=== PATIENT | female | born 1960 | race Hispanic/Latino ===

== ENCOUNTER 2022-10-15 19:34 | Observation (INO) | payer OTHER ==
[2022-10-15] MEDS ORDERED: NA CHLORIDE 0.9% 500 ML ONE ×2 (20:06→21:53)
[2022-10-15 20:11] LABS: Absolute Lymphocytes (CBC) 0.6 K/uL (0.7-4.9); Hematocrit 37.4 % (36.0-45.0); Lymphocytes % 8.4 % (15.3-44.8); MCV 90.6 fL (80-100); MPV 7.7 fL (7.6-11.3); RBC Red Blood Cell Count 4.13 M/uL (3.86-4.86)
[2022-10-15 20:12] LABS: Protime INR 1.19
[2022-10-15] MEDS ORDERED: ONDANSETRON 4 MG/2 ML VIAL ONE (20:22)
[2022-10-15] MEDS ORDERED: FAMOTIDINE 20 MG/2 ML VIAL IV ONE (20:22)
[2022-10-15 20:35] LABS: ALT/SGPT 22 U/L (13-56); Albumin 3.5 g/dL (3.4-5.0); Alkaline Phosphatase 65 U/L (45-117); BUN Blood Urea Nitrogen 9 mg/dL (7-18); Bicarbonate 28 mmol/L (21-32); Bilirubin Total 0.3 mg/dL (0.2-1.0); Glomerular Filtration Rate 83 ml/min (=/>90); Glucose Level 225 mg/dL (74-106); NT PRO-BNP 31 pg/mL (<125); Protein, Total 7.6 g/dL (6.4-8.2); Sodium Level 137 mmol/L (136-145); Troponin High Sensitivity 23.8 pg/mL (<58.9)
[2022-10-15 20:36] LABS: AST/SGOT 22 U/L (15-37); Bilirubin Direct < 0.1 mg/dL (0-0.2); Magnesium 1.8 mg/dL (1.6-2.4); Potassium 4.1 mmol/L (3.5-5.1)
--- NOTE | 2022-10-15 20:44 | RAD REPORT ---
EXAM DESCRIPTION: RAD - Chest Single View - 10/15/2022 8:38 pm CLINICAL HISTORY: COUGH Chest pain. COMPARISON: Chest Single View dated 09/06/2017 FINDINGS: Portable technique limits examination quality. The lungs are grossly clear. The heart is normal in size. No displaced fractures. IMPRESSION: No acute intrathoracic process suspected.
[2022-10-15 20:55] LABS: SARS-COV-2 RT PCR NEGATIVE (NEGATIVE)
[2022-10-15] MEDS ORDERED: MECLIZINE HCL 12.5 MG TAB ONE (20:55)
[2022-10-15 21:06] LABS: Urine Bacteria None Seen /HPF (<20); Urine Mucus Slight /HPF (None Seen)
--- NOTE | 2022-10-15 21:11 | RAD REPORT ---
EXAM DESCRIPTION: CT - Head Brain Wo Cont - 10/15/2022 9:03 pm CLINICAL HISTORY: headache, dizziness Headache, drowsiness COMPARISON: <Comparisons> TECHNIQUE: All CT scans are performed using dose optimization technique as appropriate and may inclu de automated exposure control or mA/KV adjustment according to patient size. FINDINGS: No intracranial hemorrhage, hydrocephalus or extra-axial fluid collection.Mild generalized brain atrophy.No areas of brain edema or evidence of midline shift. Mild mucoperiosteal thickening of both maxillary antra and ethmoid air cells. The calvarium is intact . IMPRESSION: No acute intracranial abnormality. Mild sinus thickening.
--- NOTE | 2022-10-15 21:12 | RAD REPORT ---
EXAM DESCRIPTION: CTAbdomen Pelvis W Contrast - 10/15/2022 9:04 pm CLINICAL HISTORY: Abdominal pain. epigastric pain COMPARISON: No comparisonsNo comparisons TECHNIQUE: Biphasic CT imaging of the abdomen and pelvis was performed with 100 ml non-ionic IV cont rast. All CT scans are performed using dose optimization technique as appropriate and may include automated exposure control or mA/KV adjustment according to patient size. FINDINGS: The lung bases are clear.Small hiatal hernia. The liver demonstrates diffuse fatty infiltration. Cholecystectomy clips. Spleen, pancreas, adrenal g lands and kidneys are within normal limits. No bowel obstruction, free air, free fluid or abscess. Mild sigmoid diverticulosis coli without diver ticulitis. The appendix is normal. No evidence of significant lymphadenopathy. No suspicious bony findings. IMPRESSION: No acute intra-abdominal or pelvic finding. Fatty liver. Mild sigmoid diverticulosis coli without diverticulitis.
--- NOTE | 2022-10-15 21:36 | EDPHYS ---
Physician Documentation [facility] Name: Kailey Galvez Age: 62 yrs Sex: Female : 1960 Arrival Date: 10/15/2022 Time: 19:44 Bed 12 Private MD: ED Physician Thad Millan HPI: 10/15 19:55 This 62 yrs old Female presents to ER via EMS with complaints of Cough. cp 19:55 The patient or guardian reports cough. Onset: The symptoms/episode began/occurred cp yesterday. 19:55 Associated signs and symptoms: Pertinent positives: vomiting, abdominal pain, general cp weakness, Pertinent negatives: chest pain, diarrhea, fever. Severity of symptoms: in the emergency department the symptoms are unchanged despite home interventions. Historical: - Allergies: 22:48 No Known Allergies; pf1 - PMHx: 22:48 Diabetes - NIDDM; pf1 - Immunization history:: Adult Immunizations not up to date, Client reports receiving the 2nd dose of the Covid vaccine. - Social history:: Smoking status: Patient denies any tobacco usage or history of. Patient/guardian denies using alcohol, street drugs. ROS: 20:00 Constitutional: Negative for fever, poor PO intake. cp 20:00 Eyes: Negative for injury, pain, redness, and discharge. cp 20:00 ENT: Negative for drainage from ear(s), ear pain, difficulty swallowing, difficulty handling secretions. 20:00 Cardiovascular: Negative for chest pain. 20:00 Respiratory: Positive for cough, "sounds productive". 20:00 Abdomen/GI: Positive for abdominal pain, nausea and vomiting, Negative for diarrhea, constipation, black/tarry stool, rectal bleeding. 20:00 Skin: Negative for rash. 20:00 Neuro: Positive for weakness, Negative for altered mental status. 20:00 All other systems are negative. Exam: 20:05 ECG was reviewed by the Attending Physician. cp 20:07 Constitutional: The patient appears in no acute distress, alert, awake, cp non-diaphoretic, non-toxic, well developed, well nourished, uncomfortable. 20:07 Head/Face: Normocephalic, atraumatic. cp 20:07 Eyes: Periorbital structures: appear normal, Conjunctiva: normal, no exudate, no injection, Sclera: no appreciated abnormality, Lids and lashes: appear normal, bilaterally. 20:07 ENT: External ear(s): are unremarkable, Nose: is normal, Mouth: Lips: moist, Oral mucosa: pink and intact, moist, Posterior pharynx: Airway: no evidence of obstruction, patent, swelling, is not appreciated, erythema, that is mild, exudate, is not appreciated. 20:07 Neck: ROM/movement: is normal, is supple, without pain, no range of motions limitations, no meningismus. 20:07 Chest/axilla: Inspection: normal. 20:07 Cardiovascular: Rate: tachycardic, Rhythm: regular, Edema: is not appreciated, JVD: is not appreciated. 20:07 Respiratory: the patient does not display signs of respiratory distress, Respirations: normal, no use of accessory muscles, no retractions, labored breathing, is not present. 20:07 Abdomen/GI: Inspection: abdomen appears normal, Bowel sounds: active, all quadrants, Palpation: soft, in all quadrants, moderate abdominal tenderness, in the right upper quadrant and left upper quadrant, rebound tenderness, is not appreciated, involuntary guarding, is not appreciated. 20:07 Back: CVA tenderness, is absent. 20:07 Skin: cellulitis, is not appreciated, no rash present. 20:07 Neuro: Orientation: to person, place \\T\\ time. Mentation: is normal, Motor: moves all fours, strength is normal, Sensation: is normal. Vital Signs: 19:44 BP 126 / 94; Pulse 103; Resp 25; Temp 98.4(O); Pulse Ox 100% ; vc1 20:30 BP 116 / 82; Pulse 89; Resp 18; Pulse Ox 100% ; pf1 21:30 BP 121 / 76 Supine; Pulse 95; Resp 19; Pulse Ox 100% ; Pain 5/10; pf1 21:31 BP 120 / 84 Sitting; Pulse 90; Resp 19; Pulse Ox 99% on R/A; pf1 21:32 BP 121 / 81; Pulse 101; Resp 20; Pulse Ox 99% ; Pain 5/10; pf1 22:30 BP 119 / 78; Pulse 83; Resp 19; Temp 98.3; Pulse Ox 99% on R/A; Pain 2/10; pf1 23:04 Weight 53.98 kg; Height 5 ft. 1 in. (154.94 cm); pf1 23:17 BP 115 / 66; Pulse 80; Resp 17; Temp 98; Pulse Ox 100% on R/A; Pain 2/10; pf1 23:04 Body Mass Index 22.48 (53.98 kg, 154.94 cm) pf1 MDM: 19:50 Patient medically screened. cp 20:00 Differential diagnosis: bronchitis, flu, URI, pneumonia, sepsis. cp 21:35 Data reviewed: vital signs, nurses notes, lab test result(s), EKG, radiologic studies, cp CT scan, plain films. 21:35 Test interpretation: by ED physician or midlevel provider: ECG, plain radiologic cp studies. 21:35 Physician consultation: Adelso CRUZ was contacted at 21:33, regarding admission, cp to the telemetry unit. patient's condition. 10/15 19:49 Order name: Basic Metabolic Panel; Complete Time: 21:14 12/ 21:14 Interpretation: Normal except: GLUC 225; GFR 83. 10/15 19:49 Order name: CBC with Diff; Complete Time: 21:14 12 21:14 Interpretation: Normal except: ANN% 83.3; LYM% 8.4; LYMA 0.6. / 19:49 Order name: LFT's; Complete Time: 21:14 12/24 21:14 Interpretation: Normal except: GLOB 4.1; A/G 0.9. / 19:49 Order name: Magnesium; Complete Time: 21:14 10/15 19:49 Order name: NT PRO-BNP; Complete Time: 21:14 10/15 19:49 Order name: PT-INR; Complete Time: 21:14 10/15 19:49 Order name: Troponin HS; Complete Time: 21:14 10/15 19:49 Order name: COVID-19/FLU A+B/RSV; Complete Time: 21:14 10/15 19:49 Order name: Blood Culture Adult (2) 10/15 19:49 Order name: Lactate w/ 2H reflex if indic.; Complete Time: 21:14 10/15 21:15 Interpretation: Abnormal: LAC 2.5. 10/15 19:49 Order name: Procalcitonin; Complete Time: 21:14 cp 12/24 19:50 Order name: Urine Microscopic Only; Complete Time: 21:14 cp 12/24 21:34 Order name: Lactate w/ 2H reflex if indic.; Complete Time: 22:06 EDMS 12/24 21:44 Order name: DD; Complete Time: 22:06 la1 /24 19:49 Order name: XRAY Chest (1 view); Complete Time: 21:14 cp 12/24 19:49 Order name: EKG; Complete Time: 19:50 cp 12/24 19:49 Order name: Cardiac monitoring; Complete Time: 20:03 cp 12/24 20:22 Order name: CT Head Brain wo Cont; Complete Time: 21:14 cp /24 20:22 Order name: CT Abd/Pelvis - IV Contrast Only; Complete Time: 21:14 cp /24 21:50 Order name: Urine Dipstick-Ancillary; Complete Time: 22:06 EDMS 24 21:52 Order name: Urine Dipstick-Ancillary; Complete Time: 22:06 EDMS 24 19:49 Order name: EKG - Nurse/Tech; Complete Time: 20:03 cp /24 19:49 Order name: IV Saline Lock; Complete Time: 20:03 cp /24 19:49 Order name: Labs collected and sent; Complete Time: 20:03 cp 24 19:49 Order name: O2 Per Protocol; Complete Time: 20:03 cp /24 19:49 Order name: O2 Sat Monitoring; Complete Time: 20:03 cp 12/24 19:50 Order name: Urine Dipstick-Ancillary (obtain specimen); Complete Time: 21:24 cp 1224 21:23 Order name: Orthostatics; Complete Time: 21:43 la1 EC:05 Rate is 91 beats/min. Rhythm is regular. IA interval is normal. QRS interval is normal. cp QT interval is normal. T waves are Inverted in lead aVR. Interpreted by me. Reviewed by me. Administered Medications: 20:11 Drug: NS 0.9% 500 ml Route: IV; Rate: bolus; Site: right forearm; pf1 20:54 Follow up: IV Status: Completed infusion; IV Intake: 500ml pf1 21:10 Drug: Zofran (Ondansetron) 4 mg Route: IVP; Site: right femoral; pf1 22:00 Follow up: Response: Marked relief of symptoms; Nausea is decreased pf1 21:10 Drug: Pepcid (famotidine) 20 mg Route: IVP; Site: right forearm; pf1 22:00 Follow up: Response: No adverse reaction; Marked relief of symptoms pf1 21:10 Drug: Meclizine 25 mg Route: PO; pf1 21:56 Follow up: Response: Marked relief of symptoms pf1 21:56 Drug: NS 0.9% 500 ml Route: IV; Rate: bolus; Site: right forearm; pf1 22:30 Follow up: IV Status: Completed infusion; IV Intake: 500ml pf1 21:56 Drug: Tessalon Perle (benzonatate) 100 mg Route: PO; pf1 22:00 Follow up: Response: No adverse reaction; Nausea is decreased pf1 21:56 Drug: Tylenol 650 mg Route: PO; pf1 22:35 Follow up: Response: Marked relief of symptoms; Pain is decreased; RASS: Alert and Calm pf1 (0) 22:30 Drug: NS 0.9% 1000 ml Route: IV; Rate: 100 ml/hr; Site: right femoral; pf1 23:14 Follow up: Response: No adverse reaction; Marked relief of symptoms pf1 23:12 Drug: Lovenox (enoxaparin) 1 mg/kg Route: Sub-Q; Site: right lower abdomen; pf1 23:27 Follow up: Response: Marked relief of symptoms pf1 Disposition: 10/16 00:29 Co-signature as Attending Physician, Thad Millan MD I agree with the assessment and rt plan of care. Disposition Summary: 10/15/22 21:35 Hospitalization Ordered Hospitalization Status: Observation cp Provider: Hari Wheeler cp Location: Telemetry/MedSurg (observation) cp Condition: Stable cp Problem: new cp Symptoms: have improved cp Bed/Room Type: Standard cp Room Assignment: 409(10/15/22 22:13) mw Diagnosis - Nausea with vomiting, unspecified cp - Cough cp - Syncope cp - Diarrhea, unspecified cp Forms: - Medication Reconciliation Form cp - SBAR form cp Signatures: Dispatcher [employer] EDMS Vida Olivera RN RN mw Attema, Lee, [facility] Jose Lynch PA PA cp Thad Millan MD MD rt Nelsy gauthier RN RN pf1 Corrections: (The following items were deleted from the chart) 10/15 22:13 21:35 cp mw
--- NOTE | 2022-10-15 21:36 | ER ---
Nurse's Notes [facility] Name: Kailey Galvez Age: 62 yrs Sex: Female : 1960 Arrival Date: 10/15/2022 Time: 19:44 Bed 12 Private MD: Diagnosis: Nausea with vomiting, unspecified;Cough;Syncope;Diarrhea, unspecified Presentation: 10/15 19:44 Chief complaint: EMS states: "Family says she started feeling sick and weak yesterday. vc1 Today she started vomiting and having abdominal pain.". Ebola Screen: No symptoms or risks identified at this time. Initial Sepsis Screen: Does the patient meet any 2 criteria? RR > 20 per min. HR > 90 bpm. Yes Does the patient have a suspected source of infection? Yes: Productive cough/pneumonia. Risk Assessment: Do you want to hurt yourself or someone else? Patient reports no desire to harm self or others. Onset of symptoms was October 14, 2022. 19:44 Method Of Arrival: EMS: [facility] vc1 19:44 Acuity: ROLDAN 3 vc1 19:47 Care prior to arrival: Medication(s) given: zofran 4 mg, Toradol 15mg IV initiated. 20 vc1 GA, in the right forearm, Glucose check: 222. 20:00 Coronavirus screen: Client denies travel out of the [place] in the last 14 days. Client pf1 presents with at least one sign or symptom that may indicate coronavirus-19. Standard/surgical mask placed on the client. Historical: - Allergies: 22:48 No Known Allergies; pf1 - PMHx: 22:48 Diabetes - NIDDM; pf1 - Immunization history:: Adult Immunizations not up to date, Client reports receiving the 2nd dose of the Covid vaccine. - Social history:: Smoking status: Patient denies any tobacco usage or history of. Patient/guardian denies using alcohol, street drugs. Screenin:48 Abuse screen: Denies threats or abuse. Nutritional screening: No deficits noted. vc1 Tuberculosis screening: No symptoms or risk factors identified. 22:00 [facility] ED Fall Risk Assessment (Adult) History of falling in the last 3 months, pf1 including since admission No falls in past 3 months (0 pts). Assessment: 19:45 General: Appears in no apparent distress. comfortable, well groomed, well developed, pf1 Behavior is calm, cooperative, quiet. 19:45 Pain: Complains of pain in Patient C/O epigastric pain of 5. Neuro: No deficits noted. pf1 Level of Consciousness is awake, alert, obeys commands, Oriented to person, place, time, situation. Cardiovascular: Denies nausea, vomiting, with epigastric pain of 5 Heart tones S1 S2 Capillary refill < 3 seconds. Respiratory: Reports cough that is pain with cough since onset today Airway is patent Respiratory effort is even, unlabored, Respiratory pattern is regular, symmetrical, Breath sounds are clear bilaterally. GI: Reports diarrhea, nausea, vomiting, Patient C/O vomiting x 2 episodes today and diarrhea x 1 episode today. : No deficits noted. No signs and/or symptoms were reported regarding the genitourinary system. EENT: No deficits noted. No signs and/or symptoms were reported regarding the EENT system. Derm: No deficits noted. No signs and/or symptoms reported regarding the dermatologic system. 20:05 General: Patient had a syncopal episode upon standing patient from stretcher, caught pf1 patient and assisted patient back to stretcher and notified Jose Page. . 20:50 General: Patient taken to [facility] via stretcher.. pf1 22:58 Reassessment: Patient appears in no apparent distress at this time. Patient and/or pf1 family updated on plan of care and expected duration. Pain level reassessed. Patient is alert, oriented x 3, equal unlabored respirations, skin warm/dry/pink. Patient C/O epigastric pain of 2 at this time. Patient denies any other symptoms. Patient resting on stretcher, call light at , lights dimmed, side rails up x 2. Patient connected to equipment monitor phototypesetting. Patient states feeling better. Vital Signs: 19:44 BP 126 / 94; Pulse 103; Resp 25; Temp 98.4(O); Pulse Ox 100% ; vc1 20:30 BP 116 / 82; Pulse 89; Resp 18; Pulse Ox 100% ; pf1 21:30 BP 121 / 76 Supine; Pulse 95; Resp 19; Pulse Ox 100% ; Pain 5/10; pf1 21:31 BP 120 / 84 Sitting; Pulse 90; Resp 19; Pulse Ox 99% on R/A; pf1 21:32 BP 121 / 81; Pulse 101; Resp 20; Pulse Ox 99% ; Pain 5/10; pf1 22:30 BP 119 / 78; Pulse 83; Resp 19; Temp 98.3; Pulse Ox 99% on R/A; Pain 2/10; pf1 23:04 Weight 53.98 kg; Height 5 ft. 1 in. (154.94 cm); pf1 23:17 BP 115 / 66; Pulse 80; Resp 17; Temp 98; Pulse Ox 100% on R/A; Pain 2/10; pf1 23:04 Body Mass Index 22.48 (53.98 kg, 154.94 cm) pf1 ED Course: 19:44 Patient arrived in ED. vc1 19:46 Nelsy gauthier, KAVON is Primary Nurse. pf1 19:47 Triage completed. vc1 19:47 Thad Millan MD is Attending Physician. rt 19:47 Arm band placed on right wrist. vc1 19:48 Jose Lynch PA is PHCP. cp 19:48 Patient has correct armband on for positive identification. Placed in gown. Bed in low vc1 position. Side rails up X2. Adult w/ patient. Client placed on continuous cardiac and pulse oximetry monitoring. NIBP monitoring applied. 20:00 No provider procedures requiring assistance completed. pf1 20:00 Maintain EMS IV. Dressing intact. Good blood return noted. Site clean \\T\\ dry. Gauge \\T\\ pf 1 site: 20 gauge to right forearm. 20:03 Procalcitonin Sent. pf1 20:03 Lactate w/ 2H reflex if indic. Sent. pf1 20:03 Basic Metabolic Panel Sent. pf1 20:03 CBC with Diff Sent. pf1 20:03 LFT's Sent. pf1 20:03 Magnesium Sent. pf1 20:03 NT PRO-BNP Sent. pf1 20:03 PT-INR Sent. pf1 20:03 Troponin HS Sent. pf1 20:15 COVID-19/FLU A+B/RSV Sent. pf1 20:40 XRAY Chest (1 view) In Process Unspecified. EDMS 21:04 CT Head Brain wo Cont In Process Unspecified. EDMS 21:06 CT Abd/Pelvis - IV Contrast Only In Process Unspecified. EDMS 21:24 Blood Culture Adult (2) Sent. pf1 21:34 Hari Wheeler MD is Hospitalizing Provider. cp 21:47 Lactate w/ 2H reflex if indic. Sent. pf1 23:31 Patient admitted, IV remains in place. pf1 Administered Medications: 20:11 Drug: NS 0.9% 500 ml Route: IV; Rate: bolus; Site: right forearm; pf1 20:54 Follow up: IV Status: Completed infusion; IV Intake: 500ml pf1 21:10 Drug: Zofran (Ondansetron) 4 mg Route: IVP; Site: right femoral; pf1 22:00 Follow up: Response: Marked relief of symptoms; Nausea is decreased pf1 21:10 Drug: Pepcid (famotidine) 20 mg Route: IVP; Site: right forearm; pf1 22:00 Follow up: Response: No adverse reaction; Marked relief of symptoms pf1 21:10 Drug: Meclizine 25 mg Route: PO; pf1 21:56 Follow up: Response: Marked relief of symptoms pf1 21:56 Drug: NS 0.9% 500 ml Route: IV; Rate: bolus; Site: right forearm; pf1 22:30 Follow up: IV Status: Completed infusion; IV Intake: 500ml pf1 21:56 Drug: Tessalon Perle (benzonatate) 100 mg Route: PO; pf1 22:00 Follow up: Response: No adverse reaction; Nausea is decreased pf1 21:56 Drug: Tylenol 650 mg Route: PO; pf1 22:35 Follow up: Response: Marked relief of symptoms; Pain is decreased; RASS: Alert and Calm pf1 (0) 22:30 Drug: NS 0.9% 1000 ml Route: IV; Rate: 100 ml/hr; Site: right femoral; pf1 23:14 Follow up: Response: No adverse reaction; Marked relief of symptoms pf1 23:12 Drug: Lovenox (enoxaparin) 1 mg/kg Route: Sub-Q; Site: right lower abdomen; pf1 23:27 Follow up: Response: Marked relief of symptoms pf1 Medication: 23:04 VIS not applicable for this client. pf1 Intake: 20:54 IV: 500ml; Total: 500ml. pf1 22:30 IV: 500ml; Total: 1000ml. pf1 23:16 IV: 1100ml (IV Fluid); Total: 2100ml. pf1 Output: 23:16 Urine: 400ml (Voided); Total: 400ml. pf1 Outcome: 21:35 Decision to Hospitalize by Provider. cp 23:30 Admitted to Med/surg accompanied by tech, via stretcher, room 409, with chart, Report pf1 called to Cecilia Morales RN 23:30 Condition: stable 23:30 Instructed on the need for admit, Demonstrated understanding of instructions. 23:32 Patient left the ED. pf1 Signatures: Dispatcher [employer] EDMS Jose Lynch PA PA cp Anali Romero RN RN vc1 Thad Millan MD MD rt Nelsy gauthier RN RN pf1 Corrections: (The following items were deleted from the chart) 23:32 19:45 Respiratory: Reports cough that is pain with cough since onset today Airway is pf1 patent Respiratory effort is even, unlabored, Respiratory pattern is regular, symmetrical, pf1
[2022-10-15 21:50] LABS: Urine Blood 1+ (Negative); Urine Glucose Trace (Negative); Urine Protein Negative (Negative); Urine Specific Gravity >=1.030 (1.005-1.030)
[2022-10-15 21:52] LABS: Urine Blood 1+ (Negative); Urine Glucose Trace (Negative); Urine Protein Negative (Negative); Urine Specific Gravity >=1.030 (1.005-1.030)
[2022-10-15] MEDS ORDERED: ACETAMINOPHEN 325 MG TABLET ONE (21:52)
[2022-10-15] MEDS ORDERED: BENZONATATE 100 MG CAP PO ONE (21:52)
[2022-10-15] MEDS ORDERED: NA CHLORIDE 0.9% 1,000 ML ONE (21:53)
--- NOTE | 2022-10-15 22:51 | P.HP ---
Certification for Inpatient Patient admitted to: Observation With expected LOS: <2 Midnights Patient will require the following post-hospital care: None Practitioner: I am a practitioner with admitting privileges, knowledge of patient current condition, hospital course, and medical plan of care. Services: Services provided to patient in accordance with Admission requirements found in Title 42 Section 412.3 of the Code of Federal Regulations <Adelso Lopez - Last Filed: 10/15/22 22:46> Patient History Date of Service: 10/15/22 Reason for admission: Chest pain, syncope History of Present Illness: 62-year-old female with history of taq-fksbhmk-fjuhpuwhb diabetes was emergency department for 3 days of cough, congestion began having vomiting/diarrhea today. During her stay in the emergency department while getting up to be transported to CT she had a syncopal episode witnessed by staff, lost consciousness and had to be assisted back onto the stretcher after changing positions. Her evaluation in the emergency department revealed labs significant for white blood cell count 7.2 glucose 225 lactic acid 2.5 decreased to 1.5 urine negative for nitrates or leukoesterase negative for COVID or flu CT abdomen pelvis IV contrast negative acute findings chest x-ray unremarkable CT head without contrast negative for a cute findings. Patient is complaining of mild chest pain upon inspiration, mild dyspnea given syncope D-dimer was obtained which was elevated at 1230. Patient had very recent CT abdomen pelvis with IV contrast therefore cannot receive PE protocol CT at this time. Covered with therapeutic tonight Lovenox, plan for further evaluation for PE tomorrow. Patient on room air, troponin normal. - Past Medical/Surgical History -: Ngt-cdmapdj-xggwytrua diabetes -: Cholecystectomy Psychosocial/ Personal History: Patient lives at home with family - Family History Family History: Reviewed- Non-Contributory - Social History Smoking Status: Never smoker Alcohol use: No CD- Drugs: No Caffeine use: No Place of Residence: Home <Adelso Lopez - Last Filed: 10/15/22 22:46> Date of Service: 10/16/22 <Hari Wheeler - Last Filed: 10/16/22 13:06> Allergies No Known Allergies Allergy (Verified 10/16/22 00:03) Review of Systems 10-point ROS is otherwise unremarkable Respiratory: Cough, Shortness of Breath, SOB with Excertion Cardiovascular: Chest Pain Gastrointestinal: Nausea, Vomiting, Abdominal Pain, Diarrhea <Adelso Lopez - Last Filed: 10/15/22 22:46> Physical Examination - Physical Exam General: Alert, In no apparent distress, Oriented x3 HEENT: Atraumatic, PERRLA, Mucous membr. moist/pink, EOMI, Sclerae nonicteric Neck: Supple, 2+ carotid pulse no bruit, No LAD, Without JVD or thyroid abnor mality Respiratory: Clear to auscultation bilaterally, Normal air movement Cardiovascular: No edema (Today), Regular rate/rhythm, Normal S1 S2 Capillary refill: <2 Seconds Gastrointestinal: Normal bowel sounds, No tenderness Musculoskeletal: No tenderness Integumentary: No rashes Neurological: Normal speech, Normal strength at 5/5 x4 extr, Normal tone, Normal affect - Studies Laboratory Data (last 24 hrs) 10/15/22 19:55: PT 13.1 H, INR 1.19 10/15/22 19:55: WBC 7.20, Hgb 12.5, Hct 37.4, Plt Count 219 10/15/22 19:55: Sodium 137, Potassium 4.1, BUN 9, Creatinine 0.79, Glucose 225 H, Magnesium 1.8, Total Bilirubin 0.3, AST 22, ALT 22, Alkaline Phosphatase 65 <Adelso Lopez - Last Filed: 10/15/22 22:46> - Studies Laboratory Data (last 24 hrs) 10/15/22 19:55: PT 13.1 H, INR 1.19 10/15/22 19:55: WBC 7.20, Hgb 12.5, Hct 37.4, Plt Count 219 10/15/22 19:55: Sodium 137, Potassium 4.1, BUN 9, Creatinine 0.79, Glucose 225 H, Magnesium 1.8, Total Bilirubin 0.3, AST 22, ALT 22, Alkaline Phosphatase 65 <Hari Wheeler - Last Filed: 10/16/22 13:06> Assessment and Plan - Plan Assessment: Dyspnea, chest pain, syncope rule out ACS/PE Rhinorrhea, malaise, nausea/vomiting suspect viral illness Diabetes mellitus type [id number]-iyknscydr Plan: Dyspnea, chest pain, syncope rule out ACS/PE: Cardiology consult, trend troponins, echo ordered. DDimer elevated, covered with lovenox but had CT ABD with contrast today. Will need to have PE ruled out tomorrow with VQ or CT PE. Orthostatics-Pt felt dizzy/lightheaded but no significant change with vitals. CT head negative. Rhinorrhea, malaise, nausea/vomiting suspect viral illness: Negative Flu, covid. Normal WBC. Supportive measures. Diabetes mellitus type [id number]-imrxjox-ddoymztbb: ACHS accucheck, SSI, A1c in AM. DVT PPX: Therapeutic Lovenox Code status: Full Discharge Plan: Home Plan to discharge in: 24 Hours - Advance Directives Does patient have a Living Will: No Does patient have a Durable POA for Healthcare: No - Code Status/Comfort Care Code Status Assessed: Yes (Full code) Critical Care: No Time Spent Managing Pts Care (In Minutes): 55 <Adelso Lopez - Last Filed: 10/15/22 22:46> Physician Review: Patient Assessed, Agree with Above Assessment and Plan <Hari Wheeler - Last Filed: 10/16/22 13:06>
[2022-10-15] MEDS ORDERED: ENOXAPARIN 60 MG/0.6 ML SQ ONE (23:09)
[2022-10-15] MEDS ORDERED: ACETAMINOPHEN 500 MG TAB PO PRN (23:25)
[2022-10-15] MEDS ORDERED: BENZONATATE 100 MG CAP PO PRN (23:25)
[2022-10-15] MEDS ORDERED: ONDANSETRON 4 MG/2 ML VIAL IV PRN (23:25)
[2022-10-16 00:16] VITALS: O2SAT 100
[2022-10-16] MEDS: Ringers Lactate 1,000 ML IV SCH ×3 (00:26→22:28)
[2022-10-16 03:20] VITALS: BMI 22.4
[2022-10-16 04:29] LABS: Specific Gravity 1.027 (1.005-1.030); Urine Bilirubin NEGATIVE (Negative); Urine Blood Negative (Negative); Urine Clarity Clear (Clear); Urine Color Colorless (Yellow); Urine Glucose NEGATIVE (Negative); Urine Protein NEGATIVE (Negative); Urine Urobilinogen Normal (Normal)
[2022-10-16 06:07] LABS: Absolute Lymphocytes (CBC) 1.9 K/uL (0.7-4.9); Hematocrit 31.9 % (36.0-45.0); Lymphocytes % 39.8 % (15.3-44.8); MCV 91.3 fL (80-100); MPV 7.8 fL (7.6-11.3)
[2022-10-16 06:30] LABS: Albumin 2.7 g/dL (3.4-5.0); Bilirubin Total 0.2 mg/dL (0.2-1.0); Potassium 3.6 mmol/L (3.5-5.1); Protein, Total 6.1 g/dL (6.4-8.2); Thyroid Stimulating Hormone 0.441 uIU/mL (0.358-3.740)
[2022-10-16] MEDS: INSULIN -REGULAR HUMAN 50 UNIT/0.5 ML ML SQ SCH ×4 (07:30→21:00)
[2022-10-16] MEDS: ASPIRIN EC 81 MG TAB PO SCH (08:55)
[2022-10-16] MEDS ORDERED: ENOXAPARIN 40 MG/0.4 ML SQ SCH (09:00)
[2022-10-16] MEDS ORDERED: POTASSIUM 25 MEQ EFFERV TAB PO ONE (09:00)
[2022-10-16] MEDS ORDERED: PNEUMOCOCCAL VACCINE 0.5 ML IMVAC ONE (12:00)
--- NOTE | 2022-10-16 13:13 | P.PN ---
Subjective Date of Service: 10/16/22 Chief Complaint: Chest pain, syncope Ms. Kailey Herrmann is Pashto-speaking only. Dhara was unavailable this morning. History was obtained with one of our bilingual nurses. Will attempt to return to the room with the Dhara if it becomes available. No acute events since admission. She denies any prior episodes of syncope. She denies any history of cardiac or neurogenic disease. She reports persistent nausea, but has had no vomiting since being transferred to the Medical floor. Review of Systems 10-point ROS is otherwise unremarkable Respiratory: Shortness of Breath Cardiovascular: Chest Pain Gastrointestinal: Nausea, Vomiting, Diarrhea Neurological: Other (syncope) Physical Examination - Vital Signs Temperature: 98.3 F Blood Pressure: 113/58 Pulse: 76 Respirations: 16 Pulse Ox (%): 97 - Physical Exam General: Alert, In no apparent distress, Oriented x3 HEENT: Atraumatic, PERRLA, EOMI, Sclerae nonicteric Neck: Supple, JVD not distended Respiratory: Clear to auscultation bilaterally, Normal air movement Cardiovascular: No edema, Regular rate/rhythm, Normal S1 S2, No gallops, No rubs, No murmurs Gastrointestinal: Normal bowel sounds, Soft and benign, Non-distended, No tenderness, No rebound, No guarding Musculoskeletal: No clubbing Integumentary: No rashes Neurological: Normal speech, Cranial nerves 3-12 intact, Normal affect Lymphatics: No axilla or inguinal lymphadenopathy - Studies Laboratory Data (last 24 hrs) 10/15/22 19:55: PT 13.1 H, INR 1.19 10/15/22 19:55: WBC 7.20, Hgb 12.5, Hct 37.4, Plt Count 219 10/15/22 19:55: Sodium 137, Potassium 4.1, BUN 9, Creatinine 0.79, Glucose 225 H, Magnesium 1.8, Total Bilirubin 0.3, AST 22, ALT 22, Alkaline Phosphatase 65 Assessment And Plan - Plan # Syncope She reports malaise, chest pain, dyspnea, and nausea/vomiting. She had a witnessed episode of syncope in the emergency department overnight. Differential diagnoses include, but are not limited to, vasovagal syncope, orthostatic hypotension, cardiac etiology (i.e. arrhythmia, valvulopathy), and neurogenic etiologies (i.e. cerebrovascular accident, seizure). - Orthostatic vital signs - symptomatic, but no signicant change in vitals Telemetry - EKG, serial troponin: 23.8 -> 22.1 -> 24.7 - Transthoracic echocardiogram - D-Dimer = 1230 - CT chest angiogram ordered and pending - Given high concern for pulmonary embolism (syncope, chest pain, shortness of breath, elevated d-dimer), will continue therapuetic enoxaparin dose pending CT chest angiogram results - If negative, switch to prophylactic dose - Chest x-ray = "no acute intrathoracic process suspected." - CT head = "no acute intracranial abnormality. Mild sinus thickening." - CT abdomen/pelvis = "no acute intra-abdominal or pelvic finding. Fatty liver. Mild sigmoid diverticulosis coli without diverticulitis." # Lactic Acidosis likely secondary to Dehydration # SIRS Criteria (Tachycardia, Tachypnea) with no obvious infectious source - Lactic Acid = 2.5 -> 1.5 - S/P 2 L Normal Saline - continue Lactated Ringers' @ 100 mL/hr # Hyperglycemia in Type II Diabetes Mellitus - Hgb A1c = pending - Correction scale insulin # Microscopic Hematuria - Follow-up with PCP +/- Urology for further evaluation Hari Wheeler M.D.
--- NOTE | 2022-10-16 14:04 | RAD REPORT ---
EXAM DESCRIPTION: CT - Chest For Pe Angio - 10/16/2022 1:33 pm CLINICAL HISTORY: Chest pain. R/O PE COMPARISON: No comparisons TECHNIQUE: CT angiogram of the pulmonary arteries was performed with MIP. All CT scans are performed using dose optimization technique as appropriate and may include automated exposure control or mA/KV adjustment according to patient size. FINDINGS: No evidence of pulmonary thromboembolism. No acute aortic finding demonstrated. The lungs are mildly emphysematous with linear atelectasis in both lung bases. Cholecystectomy clips. No significant pericardial or pleural fluid. No concerning bony finding. IMPRESSION: No evidence of pulmonary thromboembolism. No acute lung findings.
[2022-10-16] MEDS: ENOXAPARIN 60 MG/0.6 ML SQ SCH ×2 (14:47→22:29)
--- NOTE | 2022-10-16 17:02 | EKG ---
Test Date: 2022-10-15 Test Time: 19:57:41 Manager Business: PAVAN MEASUREMENT RESULTS: Intervals: Rate: 91 MN: 142 QRSD: 68 QT: 356 QTc: 437 [place]: P: 51 MN: 142 QRS: 13 T: 42 INTERPRETIVE STATEMENTS: Normal sinus rhythm Normal ECG Compared to ECG 09/06/2017 16:33:10 Sinus tachycardia no longer present Electronically Signed On 10-16-22 17:01:13 CERAMIC DESIGN ENGINEER by Kurtis Trevino
--- NOTE | 2022-10-16 17:31 | CON ---
Date of Consultation: 10/16/2022 Reason For Consultation: Chest pain. History Of Present Illness: A 62-year-old female. Has history of diabetes, presented with upper res piratory tract infection, viral syndrome with nausea, congestion, diarrhea, and then she had an episo de of syncope. Denies having any fever, but she is having significant cough and her chest was hurtin g with cough and chest wall movements. No history of cardiac disease. Past Medical History: As outlined above in the HPI. Medications: Refer to reconciliation sheet for detailed list. Allergies: NO KNOWN DRUG ALLERGIES. Family History: No premature coronary artery disease or cancer. Social History: Does not smoke or drink. Does not use any drugs. Review of Systems: All systems reviewed and they were negative except what mentioned in HPI. Physical Examination: Vital Signs: Reviewed. Head and Neck: Pupils are equal, reactive to light. Intact eye movements. No JVD. No cervical lym phadenopathy. Neck is supple. Thyroid is not enlarged. Lungs: Clear to auscultation bilaterally. No rhonchi, wheezing, or crackles. No accessory muscle u se. Heart: Regular rate and rhythm. No extra sounds. Abdomen: Soft, nontender. Bowel sounds positive. No organomegaly. No masses or hernia. No rigidi ty or rebound. Extremities: No edema, clubbing, or cyanosis. Intact pulses. Skin: No rash. Neurologic: Alert, awake, oriented x3. No acute focal deficits appreciated. Investigations: Labs were reviewed. Her hemoglobin is 10.7, white blood cell count is 4.7, and BUN is 8, creatinine 0.61. Cardiac enzymes are negative and NT-proBNP is normal. Assessment And Recommendations: 1.Chest pain. This is noncardiac, musculoskeletal from coughing and no further cardiac workup is ne eded. The patient has a viral illness with nausea, vomiting, and dehydration. Likely, she had a syn copal episode due to dehydration. 2.Syncope, likely due to dehydration. CT per PE protocol is negative. The patient has a viral illn ess. Recommend IV hydration and symptomatic management. We will see an acute cardiac issue here and Cardiology will sign off on the case. SR/MODL Voice ID: [id number] Report ID: [id number]
[2022-10-16] MEDS ORDERED: ATORVASTATIN 40 MG TAB PO SCH (21:00)
[2022-10-17 06:14] LABS: Hematocrit 32.6 % (36.0-45.0)
[2022-10-17 06:20] LABS: MCV 90.8 fL (80-100); MPV 7.8 fL (7.6-11.3)
[2022-10-17 06:24] LABS: Albumin 2.7 g/dL (3.4-5.0); Bilirubin Total 0.2 mg/dL (0.2-1.0); Potassium 3.7 mmol/L (3.5-5.1); Protein, Total 6.2 g/dL (6.4-8.2)
[2022-10-17] MEDS: INSULIN -REGULAR HUMAN 50 UNIT/0.5 ML ML SQ SCH (07:30)
[2022-10-17] MEDS: Ringers Lactate 1,000 ML IV SCH (08:37)
[2022-10-17] MEDS: ENOXAPARIN 60 MG/0.6 ML SQ SCH (08:41)
[2022-10-17] MEDS: ASPIRIN EC 81 MG TAB PO SCH (08:41)
[2022-10-17 12:17] VITALS: BP 148/69; TEMP 97.5
== END 2022-10-17 15:33 | disposition home or self-care (01) ==
LOC: ER 19:34 → ERHOLD 21:57 → 4TH 23:16
PROVIDERS: ADMIT Internal Medicine; ATTEND Hospitalist
DX: R00.0 Tachycardia, unspecified (principal); R06.82 Tachypnea, not elsewhere classified; R65.10 Systemic inflammatory response syndrome (SIRS) of non-infectious origin without acute organ dysfunction; R55 Syncope and collapse; E87.20 Acidosis, unspecified; E86.0 Dehydration; R06.00 Dyspnea, unspecified; R05.9 Cough, unspecified; E11.9 Type 2 diabetes mellitus without complications; R07.9 Chest pain, unspecified; R11.2 Nausea with vomiting, unspecified; R53.81 Other malaise; J34.89 Other specified disorders of nose and nasal sinuses; E11.65 Type 2 diabetes mellitus with hyperglycemia; R31.29 Other microscopic hematuria; R79.1 Abnormal coagulation profile
CPT/HCPCS: 93005; 87040 ×2; 85025 ×3; 80048; 36415 ×2; 83735; 85610; 80061; 82947 ×6; 85379; 80076; 83605 ×2; 84443; 81003; 83036; 84484 ×3; 84439; 80053 ×2; 84145; 83880; 0241U; 70450; 71275; 74177; 71045; 96372; 99285; Q9967 ×2; J8597; J1650 ×4; J7120 ×4; J7040 ×2; J7030; J2405; G0378 ×3; 81015

== ENCOUNTER → 2023-11-22 | Emergency (ER) | payer OTHER ==
[~2023-11-22] MED LIST: KETOROLAC 30 MG/ML INJ ONE; NA CHLORIDE 0.9% 1,000 ML ONE
--- OUTSIDE RECORDS SUMMARY | 2023-11-22 21:22 | XMS REPORT | Continuity of Care Document ---
Author Name Unknown Address [address] [place] [address] [facility] Address [address] [place] [address] Care Team Providers Care Warhead Maintenance Specialist Name Role Phone Unavailable Unavailable Unavailable Encounters Start Date/Time End Date/Time Encounter Type Admission Type Attending Clinicians [facility] Care Department Encounter ID Source 2023-09-29 09:25:40 2023-09-29 09:25:40 Outpatient [facility] [id number] 2023-09-06 07:56:26 2023-09-06 07:56:26 Outpatient [facility] [id number] 2023-03-04 09:25:19 2023-03-04 09:25:19 Outpatient [facility] [id number] 2023-01-03 09:48:13 2023-01-03 09:48:13 Outpatient [facility] [id number] Gabrielle Otoniel 2022-10-19 10:41:15 2022-10-19 10:41:15 Outpatient [facility] [id number] Frederick Results Test Description Test Time Test Comments Results Result Co mments Source HEMOGLOBIN [id number] 03:52:05* Test Item Value Reference Range Interpretation Comme nts HEMOGLOBIN A1c (test code = 02899) 7.1 % 4.2-5.6 H [employer] GUIDELINES FOR HGB A1C: PREDIABETES/INCREASED RISK . . . . . . . 5.7-6.4% DIAGNOSIS OF DIABETES . . . . . . . . . >=6.5% WITH CONFIRMATION OR APPROPRIATE SYMPTOMS NOTE: ASSAY MAY BE AFFECTED BY HEMOGLOBINOPATHIES (SICKLE CELL ANEMIA, S-C DISEASE, OTHERS) OR ARTIFICIALLY LOWERED BY DECREASED RED CELL SURVIVAL (HEMOLYTIC ANEMIAS, BLOOD LOSS, ETC.). CONSIDER ALTERNATE TESTING OR LABORATORY CONSULTATION. HEMOGLOBIN [id number] 03:15:00* Test Item Value Reference Range Interpretation Comme nts HEMOGLOBIN A1c (test code = 28537) 8.6 % 4.2-5.6 H [employer] GUIDELINES FOR HGB A1C: PREDIABETES/INCREASED RISK . . . . . . . 5.7-6.4% DIAGNOSIS OF DIABETES . . . . . . . . . >=6.5% WITH CONFIRMATION OR APPROPRIATE SYMPTOMS NOTE: ASSAY MAY BE AFFECTED BY HEMOGLOBINOPATHIES (SICKLE CELL ANEMIA, S-C DISEASE, OTHERS) OR ARTIFICIALLY LOWERED BY DECREASED RED CELL SURVIVAL (HEMOLYTIC ANEMIAS, BLOOD LOSS, ETC.). CONSIDER ALTERNATE TESTING OR LABORATORY CONSULTATION. UNLESS OTHERWISE INDICATED, ALL TESTING PERFORMED AT [facility] [employer] [address] [place] [address] RIVET FLUNKY: NIKKI DICKEY M.D. CLIA NUMBER [id number] [facility] [place]. [id number] SCR MAMM BILATERAL CAD [id number] 16:51:09 Name: Lucy : 1960 Sex: F* - SCR MAMM BILATERAL CAD DIGITALBILATERAL DIGITAL SCREENING MAMMOGRAM WITH CAD: 11/13/2020LINICAL: Asymptomatic. Current mammographic images were evaluated by either a mcTEL M-Vu or a [employer] ImageChecker CAD (computer aided detection system). Comparison is made to exam dated 01/16/2015 mammogram - [facility]. There are scattered fibroglandular tissues in both breasts. There are benign vascular calcifications in both breasts. There also is a benign intramammary node in the left breast. No suspicious mass, architectural distortion, malignant type calcification, or lymph node abnormality detected. Breast architecture is stable compared to prior exams.IMPRESSION: BENIGNThere is no mammographic evidence of malignancy. Resume annual screening mammography in one year. Montserrat priest/penrad:11/19/2020 16:51:09 ImagingTechnologist: Sherrie Guerra MM, [facility] Mammographyletter sent: BIRADS 1-2 Normal Mammogram BI-RADS: 2 Benign
[2023-11-22 21:51] LABS: Specific Gravity 1.016 (1.005-1.030); Urine Bilirubin NEGATIVE (Negative); Urine Blood Negative (Negative); Urine Clarity Clear (Clear); Urine Color Colorless (Yellow); Urine Glucose NEGATIVE (Negative); Urine Protein NEGATIVE (Negative); Urine Urobilinogen Normal (Normal); Urine pH 7.5 (5.0-7.0)
--- NOTE | 2023-11-22 22:28 | RAD REPORT ---
EXAM DESCRIPTION: CT - Stone Protocol - 11/22/2023 10:18 pm CLINICAL HISTORY: Abdominal pain. COMPARISON: 2021 TECHNIQUE: Computed axial tomography of the abdomen pelvis was obtained without oral or IV contrast. Lack of IV and oral contrast limits evaluation of solid organs, appendix, bowel, and vessels. Abreu l reformatted images were obtained and reviewed. All CT scans are performed using dose optimization technique as appropriate and may include automated exposure control or mA/KV adjustment according to patient size. FINDINGS: A renal calculus is not seen. An ureteral calculus is not noted. A bladder calculus is not present. No hydronephrosis The liver, spleen, pancreas and adrenals appear grossly normal There is no evidence of diverticulitis. The appendix appears normal No adnexal mass IMPRESSION: Negative for a genitourinary calculus
[2023-11-22 22:46] LABS: Absolute Lymphocytes (CBC) 3.2 K/uL (0.7-4.9); Hematocrit 36.3 % (36.0-45.0); Lymphocytes % 43.6 % (15.3-44.8); MCV 91.7 fL (80-100); MPV 7.9 fL (7.6-11.3); Platelets 282 thou/uL (152-406); RBC Red Blood Cell Count 3.96 M/uL (3.86-4.86)
[2023-11-22 22:57] LABS: Albumin 3.4 g/dL (3.4-5.0); Bilirubin Total 0.2 mg/dL (0.2-1.0); Potassium 4.4 mEq/L (3.5-5.1); Protein, Total 7.7 g/dL (6.4-8.2)
--- NOTE | 2023-11-22 23:19 | EDPHYS ---
Physician Documentation [facility] Name: Kailey Galvez Age: 63 yrs Sex: Female : 1960 Arrival Date: 11/22/2023 Time: 21:19 Bed 7 Private MD: ED Physician Dominic Pereyra HPI: 11/22 22:02 This 63 yrs old Female presents to ER via Ambulatory with complaints of Pain kb With Urination, Low Back Pain, HEMATURIA. 22:02 Pt is a 63 year old female who presents with lower back pain that radiates around lower kb abd with hematuria and dysuria. Denies fever, n/v/d. . Historical: - Allergies: : No Known Allergies; km8 - Home Meds: : Metformin Oral [Active]; km8 - PMHx: :31 Diabetes - NIDDM; km8 - PSHx: : Cholecystectomy; km8 - Immunization history:: Client reports receiving the 2nd dose of the Covid vaccine, Flu vaccine is not up to date. - Social history:: Smoking status: Patient denies any tobacco usage or history of. Patient/guardian denies using alcohol, street drugs. ROS: 22:02 Constitutional: Negative for fever, chills, and weight loss, kb 22:02 Abdomen/GI: Positive for abdominal pain, Negative for nausea, vomiting, and diarrhea, 22:02 Back: Positive for pain at rest, pain with movement, of the low back area, 22:02 : Positive for hematuria, burning with urination, 22:02 All other systems are negative, Exam: 22:02 Constitutional: This is a well developed, well nourished patient who is awake, alert, kb and in no acute distress. Head/Face: Normocephalic, atraumatic. ENT: Moist Mucous membranes Cardiovascular: Regular rate Respiratory: Respirations even and unlabored. No increased work of breathing. Talking in full sentences Abdomen/GI: Soft, non-tender. No distention Skin: Warm, dry with normal turgor. Normal color. MS/ Extremity: Pulses equal, no cyanosis. Neurovascular intact. Full, normal range of motion. Neuro: Awake and alert, GCS 15, oriented to person, place, time, and situation. Moves all extremities. Normal gait. 22:02 Back: pain, that is mild, of the low back area, Vital Signs: 21:29 BP 151 / 96; Pulse 87; Resp 16; Temp 98; Pulse Ox 100% on R/A; Weight 53.52 kg (R); km8 Height 4 ft. 11 in. ; Pain 8/10; 11/23 00:18 BP 131 / 76; Pulse 69; Resp 20; Temp 98; Pulse Ox 97% on R/A; rv 11/22 21:29 Body Mass Index 23.83 (53.52 kg, 149.86 cm) [facility] 11/22 21:29 Pain Scale: Adult [facility] Amberly Coma Score: 11/22 22:41 Eye Response: spontaneous(4). Motor Response: obeys commands(6). Verbal Response: rv oriented(5). Total: 15. MDM: 21:28 Patient medically screened. kb 22:03 Differential diagnosis: urinary tract infection, pyelonephritis, kidney stone. Data kb reviewed: vital signs, nurses notes. Historians other than the Patient: Family Member: daughter. 23:18 Counseling: I had a detailed discussion with the patient and/or guardian regarding the kb historical points, exam findings, and any diagnostic results supporting the discharge/admit diagnosis, lab results, radiology results, the need for outpatient follow up, a family practitioner, to return to the emergency department if symptoms worsen or persist or if there are any questions or concerns that arise at home. 11/22 21:30 Order name: CBC with Diff; Complete Time: 22:49 kb 11/22 21:30 Order name: CMP; Complete Time: 22:59 kb 11/22 21:30 Order name: Lipase; Complete Time: 22:59 kb 11/22 21:30 Order name: Urinalysis w/ reflexes; Complete Time: 21:56 kb 11/22 22:09 Order name: CT Stone Protocol; Complete Time: 22:35 kb 11/22 21:30 Order name: IV Saline Lock; Complete Time: 22:38 kb 11/22 21:30 Order name: Labs collected and sent; Complete Time: 22:38 kb Administered Medications: 23:15 Drug: NS 0.9% IV 1000 ml IV at 1000 ml once Route: IV; Rate: 1000 ml; Site: right hand; rv 23:15 Drug: Ketorolac IVP 15 mg IVP once Route: IVP; Site: right hand; rv Disposition: 23:54 Co-signature as Attending Physician, Dominic Pereyra MD I agree with the assessment sp4 and plan of care. I reviewed the patient's care provided by Advanced Practice Provider \T\ agree w/ the diagnosis \T\ care plan. I personally saw the pt \T\ performed a substantive portion of the visit, incldng all aspects of the (History/Exam/Medical Decision Making). Disposition Summary: 11/22/23 23:19 Discharge Ordered Notes: Location: Home kb Condition: Stable kb Diagnosis - Lower abdominal pain, unspecified kb Followup: kb - With: Emergency Department - When: As needed - Reason: Worsening of condition Followup: kb - With: Private Physician - When: 2 - 3 days - Reason: Recheck today's complaints, Continuance of care, Re-evaluation by your physician Discharge Instructions: - Discharge Summary Sheet kb - Abdominal Pain, Adult, [id number] kb Forms: - Medication Reconciliation Form kb - Thank You Letter kb - Antibiotic Education kb - Prescription Opioid Use kb - Patient Portal Instructions kb - Leadership Thank You Letter kb Signatures: Dispatcher [employer] EDMS Joy Chang, SMOOTH PLATER-C SMOOTH PLATER-Ckb Dale Kramer, RN RN Dominic Forbes MD MD sp4 Mimi Mckeon, KAVON RN km8 Corrections: (The following items were deleted from the chart) 22:18 21:31 Abdomen Pelvis W Con+CT.RAD.BRZ ordered. EDMS EDMS
--- NOTE | 2023-11-22 23:19 | ER ---
Nurse's Notes [facility] Name: Kailey Galvez Age: 63 yrs Sex: Female : 1960 Arrival Date: 11/22/2023 Time: 21:19 Bed 7 Private MD: Diagnosis: Lower abdominal pain, unspecified Presentation: 11/22 21:29 Chief complaint: Patient states: pt reports lower back pain that radiates to ABD for 2 km8 days with burning with urination and blood in urine; denies fever at home. Coronavirus screen: Client denies travel out of the [place] in the last 14 days. Ebola Screen: No symptoms or risks identified at this time. Initial Sepsis Screen: Does the patient meet any 2 criteria? No. Patient's initial sepsis screen is negative. Does the patient have a suspected source of infection? No. Patient's initial sepsis screen is negative. Risk Assessment: Do you want to hurt yourself or someone else? Patient reports no desire to harm self or others. Onset of symptoms was November 20, 2023. 21:29 Method Of Arrival: Ambulatory km8 21:29 Acuity: ROLDAN 3 km8 Triage Assessment: :31 General: Appears in no apparent distress. uncomfortable, Behavior is calm, cooperative, km8 appropriate for age. Pain: Complains of pain in back Pain radiates to abdomen Pain currently is 8 out of 10 on a pain scale. EENT: No signs and/or symptoms were reported regarding the EENT system. Neuro: Level of Consciousness is awake, alert, obeys commands, Oriented to person, place, time, situation. Cardiovascular: Denies chest pain, shortness of breath, Capillary refill < 3 seconds Patient's skin is warm and dry. Respiratory: Airway is patent Respiratory effort is even, unlabored, Respiratory pattern is regular, symmetrical. GI: No signs and/or symptoms were reported involving the gastrointestinal system. : Reports burning with urination, blood in urine. Derm: No signs and/or symptoms reported regarding the dermatologic system. Skin is intact, is healthy with good turgor, Skin is dry, Skin is pink, warm \T\ dry. normal, Skin temperature is warm. Musculoskeletal: No signs and/or symptoms reported regarding the musculoskeletal system. Range of motion: intact in all extremities. Historical: - Allergies: :31 No Known Allergies; [facility] - Home Meds: 21: Metformin Oral [Active]; 8 - PMHx: 21:31 Diabetes - NIDDM; [facility] - PSHx: 21: Cholecystectomy; 8 - Immunization history:: Client reports receiving the 2nd dose of the Covid vaccine, Flu vaccine is not up to date. - Social history:: Smoking status: Patient denies any tobacco usage or history of. Patient/guardian denies using alcohol, street drugs. Screenin:41 [facility] ED Fall Risk Assessment (Adult) History of falling in the last 3 months, rv including since admission No falls in past 3 months (0 pts) Score/Fall Risk Level 0 - 2 = Low Risk Oriented to surroundings, Maintained a safe environment, Educated pt \T\ family on fall prevention, incl call for assistance when getting out of bed, Assessed \T\ reinforced patient's understanding of fall precautions. Abuse screen: Denies threats or abuse. Denies injuries from another. Nutritional screening: No deficits noted. Tuberculosis screening: No symptoms or risk factors identified. Assessment: 22:41 General: Appears comfortable, Behavior is calm, cooperative. Pain: Complains of pain in rv low back area and abdomen. Neuro: Level of Consciousness is awake, alert, obeys commands, Oriented to person, place, time, situation. Cardiovascular: Capillary refill < 3 seconds Patient's skin is warm and dry. Respiratory: Airway is patent Respiratory effort is even, unlabored. GI: No signs and/or symptoms were reported involving the gastrointestinal system. : No signs and/or symptoms were reported regarding the genitourinary system. Derm: Skin is intact. Vital Signs: 21:29 BP 151 / 96; Pulse 87; Resp 16; Temp 98; Pulse Ox 100% on R/A; Weight 53.52 kg (R); 8 Height 4 ft. 11 in. ; Pain 8/10; 11/23 00:18 BP 131 / 76; Pulse 69; Resp 20; Temp 98; Pulse Ox 97% on R/A; rv 11/22 21:29 Body Mass Index 23.83 (53.52 kg, 149.86 cm) [facility] 11/22 21:29 Pain Scale: Adult [facility] Amberly Coma Score: 11/22 22:41 Eye Response: spontaneous(4). Motor Response: obeys commands(6). Verbal Response: rv oriented(5). Total: 15. ED Course: 21:22 Patient arrived in ED. [id number] 21:27 [facility]C [facility] kb 21:27 Dominic Pereyra MD is Attending Physician. kb 21:31 Triage completed. km8 21:31 Arm band placed on right wrist. km8 21:37 Dale Kramer, RN is Primary Nurse. rv 22:20 CT Stone Protocol In Process Unspecified. EDMS 22:41 Patient has correct armband on for positive identification. Client placed on continuous rv cardiac and pulse oximetry monitoring. NIBP monitoring applied. 22:41 No provider procedures requiring assistance completed. Inserted saline lock: 22 gauge rv in right hand, using aseptic technique. Blood collected. 11/23 00:21 IV discontinued, intact, bleeding controlled, No redness/swelling at site. Pressure rv dressing applied. 00:22 Provided Education on: discharge instruction given. education about pain given.. rv Administered Medications: 11/22 23:15 Drug: NS 0.9% IV 1000 ml IV at 1000 ml once Route: IV; Rate: 1000 ml; Site: right hand; rv 23:15 Drug: Ketorolac IVP 15 mg IVP once Route: IVP; Site: right hand; rv Medication: 22:41 VIS not applicable for this client. rv Outcome: 23:19 Discharge ordered by . 11/23 00:20 Discharged to home via wheelchair, with family, rv Condition: good Discharge instructions given to patient, family, Instructed on discharge instructions, follow up and referral plans. Demonstrated understanding of instructions, follow-up care, 00:23 Patient left the ED. rv Signatures: Dispatcher [employer] EDSD Joy Chang FNP-C FNP-Dale Quevedo, RN RN rv Dinora Mayer [id number] Mimi Mckeon RN RN km8
[2023-11-23 01:51] VITALS: BP 131/76; TEMP 98; O2SAT 97
== END ==
LOC: ER 21:19
DX: R10.30 Lower abdominal pain, unspecified (principal); R30.0 Dysuria; E11.9 Type 2 diabetes mellitus without complications
CPT/HCPCS: 36415; 74176; 76377; 80053; 81003; 83690; 85025; J7030